=== PATIENT | male | born 1985 | race Caucasian/White ===

== ENCOUNTER 2021-03-26 15:43 | Day surgery (SDC) | payer SELFPAY ==
[~2021-03-26 15:43] MED LIST: LEXAPRO20 MG PO; LORTAB 5/500 501 TAB PO; PERCOCET 325 MG1 TA2 PO; ULTRAM 50MG TAB50 MG; ULTRAM 50MG TAB50 MG PO; ZOFRAN 4MG T4 MG/TAB PO
[2021-03-26 17:55] VITALS: BP 138/87; PULSE 98; TEMP 98.7
[2021-03-26 19:00] VITALS: BP 143/77; PULSE 99; TEMP 98.6
[2021-03-27] VITALS (9 sets, daily range): BP systolic 115–136; BP diastolic 62–91; PULSE 58–104; TEMP 97.8–98.7
--- NOTE | 2021-03-27 02:39 | NUR ---
ALERT AND OX4. DENIES SOA, CHEST PAIN OR DIZZY. RATING PAIN TO RT FLANK TOLERABLE AT A 6/10. SCHEDULED TORADOL WORKING FOR PAIN, NO NEED FOR ASSET PROTECTION DETECTIVE NOW. WILL BE NPO AT MIDNIGHT AND UNDERSTAND POC/ IV FLUIDS RUNNING PER ORDER. CALL LIGHT WI REACH. NEEDS MET. KUB IN AM.
--- NOTE | 2021-03-27 09:33 | NUR ---
Patient alert and oriented, answers questions appropriately. See assessment. No c/o urinary burning, frequency or hesitancy. C/o occasional flank pain. No other c/o at this time.
--- NOTE | 2021-03-27 10:22 | NUR ---
Patient to procedure with surgical staff at 1000.
--- NOTE | 2021-03-27 10:59 | NUR ---
First visit from the rate supervisor. No needs right now.
--- NOTE | 2021-03-27 11:04 | NUR ---
SHEILA attempted to meet with the patient to discuss discharge plan. The patient was in surgery. SHEILA met with the patient's life partner, Kulwinder Villalobos (ph#[phone]), to complete intake. The patient lives in [place] with his grandmother and Kulwinder. Kulwinder reports that the patient is independent with ADLs and does not have any DME. The patient's PCP is Dr. Denzel Denise and [facility]. Kulwinder did not think that the patient has a DPOA-HC. She states that the patient is not and does not have any children. His mother, Ivelisse (ph#[phone]), is his next of kin. Ivelisse also lives in [place]. Kulwinder reports that the plan is for the patient to return home upon discharge. No additional needs at this time. *Discharge plan: home with family*
[2021-03-27] MEDS ORDERED: NORCO 325 MG-51 TAB PO (11:17)
[2021-03-27] MEDS ORDERED: PYRIDIUM 100MG100 MG PO (11:17)
--- NOTE | 2021-03-27 12:09 | NUR ---
Patient returns post op cysto. Assessment unchanged. Post op vitals initiated.
--- NOTE | 2021-03-27 14:48 | NUR ---
Discharge instructions reviewed with patient and friend, verbalized understanding. Discharged ambulatory to auto/home with friend at 1440.
== END 2021-03-27 14:40 | disposition home or self-care (01) ==
LOC: UNDOADMOB 15:43 → SURG 15:43 → SDCO 15:43 → SURG 15:43 → SDCO 03-27 14:40 → SURG 03-27 14:40
DX: N20.1 Calculus of ureter (principal); Z79.891 Long term (current) use of opiate analgesic; Z79.899 Other long term (current) drug therapy
CPT/HCPCS: OP; C1769; C1894; C2617; G0378; J0690; J1100; J1885; J2405; J2704; J3010; J7030; Q9967